=== PATIENT | male | born 1980 | race African-American/Black ===

== ENCOUNTER 2021-01-02 14:20 | Emergency (ER) | payer BC ==
[~2021-01-02] VITALS: Ht 190.5 cm; Wt 95.3 kg
[2021-01-02] MEDS ORDERED: CEFDINIR300 MG PO (16:33)
[2021-01-02] MEDS ORDERED: CIPRO500 MG PO (17:08)
== END 2021-01-02 17:49 | disposition home or self-care (01) ==
LOC: FSED 14:59
DX: R31.29 Other microscopic hematuria (principal); N50.811 Right testicular pain; N45.1 Epididymitis
CPT/HCPCS: 76870; 81003; 87086; 87186; 99283